=== PATIENT | female | born 1970 | race Caucasian/White ===

== ENCOUNTER 2019-01-23 20:08 | Emergency (ER) | payer OTHER ==
[~2019-01-23] VITALS: Ht 167.6 cm; Wt 88.0 kg
[~2019-01-23 20:08] MED LIST: GABAPENTIN300 MG PO; HYDROCODON-ACE1 EA10 PO; IBUPROFEN800 MG PO; LEVOTHYROXINE50 MCG PO; LEXAPRO20 MG PO; MACROBID 100 M100 MG PO; NORCO 10-325 T1 EACH PO; NORCO 5-325 TA1 EACH PO; VALIUM10 MG PO
[2019-01-23] MEDS ORDERED: OMEPRAZOLE40 MG PO (20:36)
== END 2019-01-23 20:50 | disposition home or self-care (01) ==
LOC: ED 20:08
DX: D18.09 Hemangioma of other sites (principal); E03.9 Hypothyroidism, unspecified; Z87.891 Personal history of nicotine dependence; Z79.899 Other long term (current) drug therapy
CPT/HCPCS: 99282